=== PATIENT | female | born 1990 ===

== ENCOUNTER 2017-06-25 08:57 | Emergency (ER) | payer SELFPAY ==
[2017-06-25] MEDS ORDERED: Dexamethasone 4 mg/ml Vial ONE (10:33)
== END 2017-06-25 11:00 | disposition home or self-care (01) ==
LOC: ERS 08:57
DX: J02.9 Acute pharyngitis, unspecified (principal); F41.9 Anxiety disorder, unspecified; F31.9 Bipolar disorder, unspecified; Z87.891 Personal history of nicotine dependence
CPT/HCPCS: 87081; 87430; 96372; J1100